=== PATIENT | female | born 1970 | race African-American/Black ===

== ENCOUNTER 2019-08-09 14:08 | Emergency (ER) | payer OTHER, SELFPAY ==
[~2019-08-09 14:08] MED LIST: Iopamidol-370 76% 500 ML 1 ML ONE
[2019-08-09 15:27] LABS: #Eosinphils 0.1 thou/uL (0.0-0.7); #Lymphocytes 0.7 thou/uL (1.20-3.40); #Monocytes 0.3 thou/uL (0.11-0.59); %Basophils 1.1 % (0.0-1.0); %Eosinophils 4.5 % (0.0-10.0); %Lymphocytes 33.5 % (21.0-51.0); %Monocytes 13.7 % (0.0-10.0); %Neutrophils 47.2 % (42.0-75.0); Hemoglobin 11.6 g/dL (12.0-16.0); Mean Corpuscular HGB CONC 32.2 g/dL (32.0-36.0); Mean Corpuscular Hemoglobin 27.6 pg (27.0-31.0); Mean Corpuscular Volume 85.9 fL (78.0-98.0); Mean Platelet Volume 7.5 fL (7.4-10.4); Platelet Count 167 thou/uL (130-400); RBC Distribution Width 11.2 % (11.5-14.5); White Blood Cell (WBC) Count 2.1 thou/uL (4.8-10.8)
[2019-08-09 15:34] LABS: PTT 34.5 SEC (22.9-36.1); Prothrombin Time 13.6 SEC (12.0-14.7)
[2019-08-09 15:35] LABS: BHCG - Serum Negative (NEGATIVE); Pregs Control Background? CLEAR/WHITE (CLR/WHITE); Pregs Control Bar Appear? YES (CONTROL BAR)
[2019-08-09 15:41] LABS: D-Dimer Test Less than 0.27 *mcg/mL (0.27-0.43)
[2019-08-09 15:43] LABS: ALT (SGPT) 11 U/L (8-55); AST (SGOT) 23 U/L (5-34); Albumin 4.3 g/dL (3.5-5.0); Alkaline Phosphatase 64 U/L (40-110); Anion Gap 7 mmol/L (10-20); BUN (Urea Nitrogen) 8 mg/dL (7.0-18.7); Bilirubin, Total 0.6 mg/dL (0.2-1.2); Calc. Creatinine Clearance 0 mL/min (70-130); Calcium 9.4 mg/dL (7.8-10.44); Carbon Dioxide 32 mmol/L (22-29); Chloride 103 mmol/L (98-107); Estimated GFR-MDRD Greater than 90; Globulin 3.5 g/dL (2.4-3.5); Glucose 85 mg/dL (70-105); Magnesium 1.5 mg/dL (1.6-2.6); Potassium 3.3 mmol/L (3.5-5.1); Protein, Total 7.8 g/dL (6.0-8.3); Sodium 139 mmol/L (136-145)
--- NOTE | 2019-08-09 15:59 | RAD ---
CHEST ONE VIEW: 08/09/19 INDICATION: History of fall after a syncopal episode. COMPARISON: Prior exam dated 03/25/09. FINDINGS: There are low lung volumes. The heart size is accentuated by the hypoventilation. No definite consoli dation, pleural effusion or pneumothorax is evident. No acute osseous abnormality is noted. No defini te acute osseous abnormality is evident. IMPRESSION: Hypoventilation. POS: OFF
--- NOTE | 2019-08-09 16:02 | CT ---
CT PULMONARY ANGIOGRAM WITH IV CONTRAST AND 3-D POSTPROCESSING: HISTORY:Pleuritic chest pain, lupus, syncope FINDINGS: There is good contrast opacification of the pulmonary arterial vasculature without filling defects to suggest pulmonary embolism. The thoracic aorta is well opacified without aneurysm or dissection. No pleural or pericardial effusions are seen. No pneumothoraces, focal areas of consolidation or lung nodules are noted. Chronic changes seen in th e peripheral aspects of the lungs bilaterally. There are mild degenerative changes in the spine. IMPRESSION: No CT evidence of pulmonary embolism.
== END 2019-08-09 17:30 | disposition home or self-care (01) ==
LOC: ERS 14:08
DX: R07.2 Precordial pain (principal); R42 Dizziness and giddiness; I10 Essential (primary) hypertension
CPT/HCPCS: 71045; 71275; 80053; 83735; 83880; 84484; 84703; 85025; 85379; 85610; 85652; 85730; 86140; 93005; 96360; Q9967